=== PATIENT | male | born 1975 | race Two or more races ===

== ENCOUNTER 2018-07-31 00:56 | Emergency (ER) | payer MEDICAID ==
[~2018-07-31] VITALS: Ht 170.2 cm; Wt 63.5 kg
[2018-07-31 01:28] LABS: Basophils # (auto) 0.3 uL; Basophils % (auto) 2.2 % (0.0-2.0); Eosinophils # (auto) 0.1 uL; Eosinophils % (auto) 0.5 % (0.0-7.0); Hematocrit 42.4 % (41.0-53.0); Hemoglobin 13.9 g/dL (13.5-17.5); Lymphocytes # (auto) 1.7 uL; Lymphocytes % (auto) 14.5 % (10.0-50.0); Mean Corpuscular Hemoglobin 28.8 pg (28.0-32.0); Mean Corpuscular Hgb Conc. 32.7 g/dL (32.0-36.0); Mean Corpuscular Volume 87.8 fL (80.0-100.0); Neutrophils # (auto) 8.5 uL; Neutrophils % (auto) 73.8 % (37.0-80.0); Nucleated Red Blood Cells % 0.1 %; Platelet Count (auto) 332 10^3/uL (140-450); Red Blood Cells 4.82 10^6/uL (4.5-5.90); Red Cell Distribution Width 13.7 % (11.8-14.3); White Blood Cell 11.5 10^3/uL (4.4-10.8)
[2018-07-31 01:46] LABS: Albumin 3.2 g/dL (3.4-5.0); Calcium 8.5 mg/dL (8.5-10.1); Potassium 3.7 mmol/L (3.5-5.1)
[2018-07-31 01:48] LABS: BUN/Creatinine Ratio 26.7
[2018-07-31 01:51] LABS: Bilirubin, Total 0.7 mg/dL (0.2-1.0); Total Protein 8.7 g/dL (6.4-8.2)
[2018-07-31] MEDS: LORazepam 2MG/ML-1ML VIAL IV ONE (07:38)
[2018-07-31] MEDS: clonazePAM 0.5 MG TAB PO ONE (07:38)
[2018-07-31] MEDS: SODIUM CHLORIDE 0.9% 1,000 ML IV ONE (07:38)
[2018-07-31 08:09] VITALS: BP 161/104
[2018-07-31] MEDS: DIPHENOXYLATE W/ATROPINE 2.5 MG TAB PO ONE (10:32)
[2018-07-31 10:44] LABS: Blood Alcohol < 3.0 mg/dL (0-5); Magnesium 2.6 mg/dL (1.6-2.6)
== END 2018-07-31 11:37 | disposition home or self-care (01) ==
LOC: EDBD 00:56 → ER 01:02
DX: F19.10 Other psychoactive substance abuse, uncomplicated (principal); F17.210 Nicotine dependence, cigarettes, uncomplicated; R19.7 Diarrhea, unspecified; R11.2 Nausea with vomiting, unspecified; Z59.0 Homelessness
CPT/HCPCS: 36415; 80053; 80320; 83735; 85025; 94761; 96361; 96374; 99285; J2060; J7030